=== PATIENT | female | born 1960 | race African-American/Black ===

== ENCOUNTER → 2021-04-11 | Outpatient (CLI) | payer BC ==
--- NOTE | 2021-04-11 09:35 | RAD ---
MR#: [id number] Date of Study: 04/11/2021 Ordering Physician: JIMENEZ GARZA, Referring Physician: JIMENEZ GARZA, Tech: Ricco Minaya MBA, RDMS, RVT, RDCS, RTR APPROVED REPORT Patient Location: OUT-PATIENT Indications Uncontrolled HTN Renal Artery Doppler Right Renal Artery Left Renal Arter y Proximal 105.0/28.0 cm/secProximal 98.0/29.0 cm/sec Mid 81.0/29.0 cm/secMid 90.0/30.0 cm/sec Distal 126.0/44.0 cm/secDistal 64.0/24.0 cm/sec Renal/Aorta Ratio 0.91Renal/Aorta Ratio 0.70 Prox. Resistive Index 0.73Prox. Resistive Index 0.71 Mid Resistive Index 0.64Mid Resistive Index 0.67 Distal Resistive Index 0.65Distal Resistive Index 0.63 Rt. Segmental A. 34.0/13.0 cm/secLt. Segmental A. Renal Measurements RightLeft Kidney Xqujpw34.6 cm cmKidney Etnukn14.6 cm cm Right Additional FindingsLeft Additional Findings Aortic Duplex A/PTransverseLongitudinal Proximal Aorta 1.9cm Mid Aorta 1.5cm Distal Aorta 1.4cm Aortic Doppler VelocityWaveform Proximal Aorta 139.0 cm/sec Findings Grayscale images of abdominal aorta showed mild diffuse atherosclerosis without any significant aneur ysm. Spectral waveform and color duplex analysis showed normal velocities without any significant st enosis. Grayscale images of bilateral kidneys were unremarkable with right kidney measuring 10.6 cm and left kidney measuring 11.6 cm. Spectral waveform and color duplex analysis of proximal, mid and distal re nal arteries showed velocities within normal limits without any evidence of stenosis. The resistive indicis and renal artery to aortic ratio is within normal limits bilaterally. Critical Notification Critical Value: No <Conclusion> No significant renal artery stenosis. Signed by : Radu Hinojosa, Electronically Approved : 04/11/2021 09:34:47
--- NOTE | 2021-04-11 13:15 | CARD ---
MR#: [id number] Date of Study: 04/11/2021 Ordering Physician: JIMENEZ GARZA, Referring Physician: JIMENEZ GARZA, Tech: Katina Montague [facility] APPROV[facility] REPORT EXAM: Two-dimensional and M-mode echocardiogram with Doppler and color Doppler. Other Information Quality : GoodHR: 64bpm Rhythm : NSR INDICATION Hypertension/HCVD RISK FACTORS Hypertension 2D DIMENSIONS RVDd2.8 (2.9-3.5cm)Left Atrium(2D)2.9 (1.6-4.0cm) IVSd1.1 (0.7-1.1cm)Aortic Root(2D)3.2 (2.0-3.7cm) LVDd4.0 (3.9-5.9cm)LVOT Diameter2.3 (1.8-2.4cm) PWd1.0 (0.7-1.1cm)LVDs2.4 (2.5-4.0cm) FS (%) 40.0 %SV50.7 ml LVEF(%)71.1 (>50%) Aortic Valve AoV Peak Fito.91.7cm/sAoV VTI19.7cm AO Peak GR.3.4mmHgLVOT Peak Fito.85.1cm/s AO Mean GR.2mmHgAVA (VMAX)4.01cm2 Mitral Valve MV E Hmocngtr187.0cm/sMV DECEL [id number] MV A Pqfmrdia81.2cm/sE/A Ratio1.1 Pulmonary Valve PV Peak Lqwdxtbf12.2cm/s Tricuspid Valve TR P. Lvqbcsfh487mq/sTR Peak Gr.20mmHg LEFT VENTRICLE The left ventricle is normal size. There is borderline concentric left ventricular hypertrophy. The l eft ventricular systolic function is normal. Estimated ejection fraction 60%. There is normal LV seg mental wall motion. The left ventricular diastolic function and filling is normal for age. RIGHT VENTRICLE The right ventricle is normal size. There is normal right ventricular wall thickness. The right ventr icular systolic function is normal. ATRIA The left atrium size is normal. The right atrium size is normal. The interatrial septum is intact wit h no evidence for an atrial septal defect or patent foramen ovale as noted on 2-D or Doppler imaging. AORTIC VALVE The aortic valve is normal in structure and function. Doppler and Color Flow revealed no significant aortic regurgitation. There is no significant aortic valvular stenosis. MITRAL VALVE The mitral valve is normal in structure and function. There is no evidence of mitral valve prolapse. There is no mitral valve stenosis. Doppler and Color Flow revealed no mitral valve regurgitation note d. TRICUSPID VALVE The tricuspid valve is normal in structure and function. Doppler and Color Flow revealed trace tricus pid regurgitation. Estimated PAP 23 mmHg. There is no tricuspid valve stenosis. PULMONIC VALVE The pulmonary valve is normal in structure and function. Doppler and Color Flow revealed no pulmonic valvular regurgitation. GREAT VESSELS The aortic root is normal in size. The ascending aorta is normal in size. The IVC is normal in size a nd collapses >50% with inspiration. PERICARDIAL EFFUSION There is no evidence of significant pericardial effusion. Critical Notification Critical Value: No <Conclusion> The left ventricular systolic function is normal. Estimated ejection fraction 60%. There is normal LV segmental wall motion. Trace tricuspid regurgitation. Estimated PAP 23 mmHg. There is no evidence of significant pericardial effusion. Signed by : Radu Hinojosa, Electronically Approved : 04/11/2021 13:14:18
== END ==
LOC: US 07:04
PROVIDERS: ATTEND Internal Medicine Cardiovascular Disease
DX: I70.0 Atherosclerosis of aorta (principal); I10 Essential (primary) hypertension; R01.1 Cardiac murmur, unspecified
CPT/HCPCS: 93306; 93975